=== PATIENT | female | born 1985 | race Caucasian/White ===

== ENCOUNTER 2022-01-07 02:15 | Emergency (ER) | payer SELFPAY ==
[~2022-01-07] VITALS: Ht 167.6 cm; Wt 63.5 kg
[2022-01-07] MEDS ORDERED: NALOXONE PFS 2 MG/2 ML SYR ONE (02:24)
--- NOTE | 2022-01-07 02:26 | NUR ---
patient received 1mg of narcan per BRANDY Camacho verbal order. waste of 1mg done with RN.
--- NOTE | 2022-01-07 02:30 | NUR ---
Patient noncompliant and agitated at this time. screaming "I'm thristy" over and over again.
--- NOTE | 2022-01-07 02:30 | NUR ---
Patient awake and alert and refuses to state her name or at this time.
[2022-01-07 02:31] VITALS: BP 141/96
--- NOTE | 2022-01-07 02:37 | NUR ---
Patient screaming "get me out of here"
[2022-01-07] MEDS ORDERED: NALOXONE PFS 2 MG/2 ML SYR IVP ONE (02:40)
--- NOTE | 2022-01-07 02:45 | NUR ---
PATIENT ELOPED FROM FACILITY. DISCHARGE INSTRUCTIONS NOT GIVEN TO PATIENT. DR. LIVINGSTON NOTIFIED.
--- NOTE | 2022-01-07 02:48 | NUR ---
CHART CHECKED BY [employer].
== END 2022-01-07 02:38 | disposition left against medical advice (07) ==
LOC: MED 02:15
DX: T40.2X1A Poisoning by other opioids, accidental (unintentional), initial encounter (principal); R06.89 Other abnormalities of breathing; R09.02 Hypoxemia; Y92.89 Other specified places as the place of occurrence of the external cause
CPT/HCPCS: 99291; J2310